=== PATIENT | male | born 1975 | race Caucasian/White ===

== ENCOUNTER 2017-02-28 04:45 | Inpatient (IN) | payer BC ==
--- NOTE | 2017-02-28 05:16 | ED ---
Psych HPI - General Chief Complaint: Psychiatric Symptoms Stated Complaint: Mental Health Time Seen by Provider: 02/28/17 04:57 Source: patient Mode of arrival: ambulatory - History of Present Illness Initial Comments: This patient is a 41-year-old man with history of previous psychiatric treatment to presents because he is having worsening of his depressed mood and suicidal ideation. The patient states that he stopped taking his psychiatric medications about a month ago. He states that the effects of medications he Wearing off now on for the past few days to weeks he has been feeling more depressed like he might harm himself. He has been having thoughts of hanging himself. MD Complaint: suicidal ideation, feels depressed -: days(s) Associated Psychiatric Symptoms: depression, suicidal ideation History of same: Yes Quality: getting worse Improves With: none Worsens With: none Context: not taking psychiatric medications Associated Symptoms: denies other symptoms Treatments Prior to Arrival: none If Self Harm: has plan - Related Data Previous Rx's Medication Instructions Recorded Escitalopram [Lexapro] 20 mg PO DAILY #30 tab 04/27/16 LORazepam [Ativan] 0.5 mg PO ACHS #30 tab 04/27/16 Methylphenidate HCl [Ritalin] 10 mg PO AC-BRKFST #30 tab 04/27/16 Paliperidone [Invega] 6 mg PO HS #30 tab.er.24 04/27/16 traZODone HCL [Desyrel] 100 mg PO HS #30 tab 04/27/16 Allergies Allergy/AdvReac Type Severity Reaction Status Date / Time No Known Allergies Allergy Verified 02/28/17 04:53 Review of Systems ROS Statement: Those systems with pertinent positive or pertinent negative responses have been documented in the HPI. ROS Other: All systems not noted in ROS Statement are negative. Constitutional: Denies: fever, chills Respiratory: Denies: cough, dyspnea Cardiovascular: Denies: chest pain, palpitations, edema Gastrointestinal: Denies: abdominal pain, vomiting, diarrhea Musculoskeletal: Denies: back pain Skin: Denies: rash Neurological: Denies: headache, weakness, numbness Psychiatric: Reports: depression, suicidal thoughts. Denies: auditory hallucinations, visual hallucinations, homicidal thoughts Past Medical History Past Medical History: No Reported History History of Any Multi-Drug Resistant Organisms: None Reported Past Surgical History: No Surgical Hx Reported Additional Past Surgical History / Comment(s): vasectomy in July Past Anesthesia/Blood Transfusion Reactions: No Reported Reaction Past Psychological History: ADD/ADHD, Anxiety, Depression Smoking Status: Never smoker Past Alcohol Use History: Occasional Past Drug Use History: Marijuana - Past Family History Father Family Medical History: Diabetes Mellitus, Hypertension Mother Family Medical History: No Reported History General Exam Limitations: no limitations General appearance: alert, in no apparent distress Head exam: Present: atraumatic, normocephalic Eye exam: Present: normal appearance. Absent: scleral icterus, conjunctival injection Respiratory exam: Present: normal lung sounds bilaterally. Absent: respiratory distress, wheezes, rales, rhonchi, stridor Cardiovascular Exam: Present: regular rate, normal rhythm, normal heart sounds. Absent: systolic murmur, diastolic murmur, rubs, gallop GI/Abdominal exam: Present: soft. Absent: distended, tenderness, guarding, rebound, mass Extremities exam: Present: normal inspection, normal capillary refill. Absent: pedal edema, calf tenderness Back exam: Present: normal inspection. Absent: CVA tenderness (R), CVA tenderness (L) Neurological exam: Present: alert Psychiatric exam: Present: normal affect, depressed, suicidal ideation. Absent : agitated, anxious, flat affect, manic, homicidal ideation Skin exam: Present: warm, dry, intact, normal color. Absent: rash Course Vital Signs 02/28/17 04:50 Temperature 98.3 F Pulse Rate 73 Respiratory 16 Rate Blood Pressure 131/84 O2 Sat by Pulse 98 Oximetry Disposition Clinical Impression: Depression, Suicidal ideation Disposition: ADMITTED IP TO THIS [facility] Condition: Fair Referrals: None,Stated [Primary Care Provider] - 1-2 days
[2017-02-28] MEDS ORDERED: MAG HYDROX/AL HYDROX/SIMETH 30 ML CUP PO PRN (07:24)
[2017-02-28] MEDS ORDERED: MAGNESIUM HYDROXIDE 2,400 MG/10 ML CUP PO PRN (07:24)
[2017-02-28] MEDS ORDERED: ACETAMINOPHEN TAB 325 MG TAB PO PRN (07:24)
[2017-02-28] MEDS ORDERED: LORazepam 1 MG TAB PO PRN (07:24)
[2017-02-28] MEDS ORDERED: ZIPRASIDONE 20 MG VIAL IM PRN (07:24)
[2017-02-28] MEDS ORDERED: LORazepam 2 MG/ML SYRINGE IM PRN (07:29)
[2017-02-28 07:38] LABS: Appearance,Urine Clear (Clear); Bilirubin,Urine Negative (Negative); Glucose,Urine (UA) Negative (Negative); Ketones,Urine Trace (Negative); Leukocyte Esterase,Urine Negative (Negative); Nitrite,Urine Negative (Negative); Protein,Urine Negative (Negative); Specific Gravity,Urine 1.013 (1.001-1.035); UA Billing (MACRO vs. MICRO) CHEM; Urobilinogen,Urine <2.0 mg/dL (<2.0)
[2017-02-28 09:30] LABS: Basophils % (A) 0 %; CH 32.3; CHCM 35.3; Eosinophils % (A) 1 %; HCT 44.9 % (39.0-53.0); HDW 2.51; HGB 15.5 gm/dL (13.0-17.5); Luc # (Auto) 0.15; Luc % (Auto) 2; Lymphocytes # (A) 0.9 k/uL (1.0-4.8); Lymphocytes % (A) 15 %; MCH 31.9 pg (25.0-35.0); MCHC 34.6 g/dL (31.0-37.0); MCV 91.9 fL (80.0-100.0); Mean Platelet Volume 6.4; Monocytes # (A) 0.4 k/uL (0-1.0); Monocytes % (A) 7 %; Neutrophils # (A) 4.6 k/uL (1.3-7.7); Neutrophils % (A) 75 %; RBC 4.88 m/uL (4.30-5.90); RDW 12.4 % (11.5-15.5); WBC 6.1 k/uL (3.8-10.6)
[2017-02-28 09:40] LABS: ALT 32 U/L (21-72); AST 23 U/L (17-59); Alkaline Phosphatase 67 U/L (38-126); Anion Gap 14 mmol/L; Blood Urea Nitrogen 13 mg/dL (9-20); Calcium 9.5 mg/dL (8.4-10.2); Carbon Dioxide 21 mmol/L (22-30); Chloride 104 mmol/L (98-107); Glucose 102 mg/dL (74-99); Non-African American GFR(MDRD) >60 (>60 ml/min/1.73 sqM); Potassium 4.2 mmol/L (3.5-5.1); Sodium 139 mmol/L (137-145); Total Bilirubin 0.8 mg/dL (0.2-1.3); Total Protein 7.9 g/dL (6.3-8.2)
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
[2017-02-28] MEDS: buPROPion 75 MG TAB PO SCH (10:44)
--- NOTE | 2017-02-28 16:25 | P.CONS ---
History of Present Illness - Reason for Consult Consult date: 02/28/17 Medical management - History of Present Illness This is a 41-year-old male without primary care physician. He has a past medical history of ADHD, anxiety and depression. Patient presented to [facility] emergency center with complaints of worsening depression and suicidal ideation. Patient stopped taking his psychiatric medications one month ago. TSH is 2.190. Urinalysis was nitrate and leukoesterase negative. Urine drug screen positive for benzodiazepines. Patient has been admitted to the mental health unit. Patient denies any medical concerns. Review of Systems All systems: negative Constitutional: Denies chills, Denies fever Eyes: denies blurred vision, denies pain Ears, nose, mouth and throat: Denies headache, Denies sore throat Cardiovascular: Denies chest pain, Denies shortness of breath Respiratory: Denies cough Gastrointestinal: Denies abdominal pain, Denies diarrhea, Denies nausea, Denies vomiting Musculoskeletal: Denies myalgias Integumentary: Denies pruritus, Denies rash Neurological: Denies numbness, Denies weakness Psychiatric: Reports depression, Reports hopelessness, Reports suicidal ideation , Denies anxiety Endocrine: Denies fatigue, Denies weight change Past Medical History Past Medical History: No Reported History History of Any Multi-Drug Resistant Organisms: None Reported Past Surgical History: No Surgical Hx Reported Additional Past Surgical History / Comment(s): vasectomy in July Past Anesthesia/Blood Transfusion Reactions: No Reported Reaction Past Psychological History: ADD/ADHD, Anxiety, Depression Smoking Status: Never smoker Past Alcohol Use History: Occasional Additional Past Alcohol Use History / Comment(s): She denies any medical marijuana, marijuana, street drug or alcohol use. Past Drug Use History: Marijuana - Past Family History Father Family Medical History: Diabetes Mellitus, Hypertension Additional Family Medical History / Comment(s): Father is alive at age 65 with history of diabetes. Mother Family Medical History: No Reported History Additional Family Medical History / Comment(s): Mother is alive at age 63 with no major medical problems. Brother(s) Additional Family Medical History / Comment(s): Patient has 2 brothers with no major medical problems. Patient does not have any sisters. Patient has one 2- year-old child with no major medical problems. Medications and Allergies Home Medications Medication Instructions Recorded Confirmed Type ARIPiprazole [Abilify] 20 mg PO DAILY 02/28/17 02/28/17 History Paliperidone [Invega] 3 mg PO HS 02/28/17 02/28/17 History buPROPion XL [Wellbutrin Xl] 150 mg PO DAILY 02/28/17 02/28/17 History Allergies Allergy/AdvReac Type Severity Reaction Status Date / Time No Known Allergies Allergy Verified 02/28/17 07:59 Physical Exam Vitals: Vital Signs Temp Pulse Pulse Resp BP BP Pulse Ox 02/28/17 07:58 98.7 F 73 18 110/65 98 02/28/17 07:40 98.5 F 67 18 112/72 97 02/28/17 06:48 98.9 F 68 18 115/72 98 02/28/17 04:50 98.3 F 73 16 131/84 98 Intake and Output 02/27/17 02/28/17 02/28/17 22:59 06:59 14:59 Other: Weight 83.915 kg Gen: This is a 41-year-old male. He is cooperative and appears to be in no acute distress. HEENT: Head is atraumatic, normocephalic. Pupils equal, round. Sclerae is anicteric. NECK: Supple. No JVD. No lymphadenopathy. No thyromegaly. LUNGS: Clear to auscultation. No wheezes or rhonchi. No intercostal retractions. HEART: Regular rate and rhythm. No murmur. ABDOMEN: Soft. Bowel sounds are present. No masses. No tenderness. EXTREMITIES: No pedal edema. No calf tenderness. NEUROLOGICAL: Patient is awake, alert and oriented x3. Cranial nerves 2 through 12 are grossly intact. Results CBC & Chem 7: 02/28/17 08:32 02/28/17 08:32 Labs: Abnormal Lab Results - Last 24 Hours (Table) 02/28/17 02/28/17 02/28/17 Range/Units 05:05 05:05 08:32 Lymphocytes # 0.9 L (1.0-4.8) k/uL Carbon Dioxide (22-30) mmol/L Glucose (74-99) mg/dL Urine Ketones Trace H (Negative) U Benzodiazepines Scrn Detected H (NotDetected) 02/28/17 Range/Units 08:32 Lymphocytes # (1.0-4.8) k/uL Carbon Dioxide 21 L (22-30) mmol/L Glucose 102 H (74-99) mg/dL Urine Ketones (Negative) U Benzodiazepines Scrn (NotDetected) Assessment and Plan Plan: 1. Depression recurrent with suicidal ideation with noncompliance with medication. Patient has been admitted to the mental health unit. Continue current plan of care. 2. Anxiety. Continue as in #1. Impression and plan of care have been directed as dictated by the signing physician. Eleni Dumont nurse practitioner acting as scribe for signing physician.
[2017-02-28 20:32] VITALS: BMI 28.1
[2017-02-28] MEDS ORDERED: LITHIUM CARBONATE 150 MG CAP PO SCH (21:00)
[2017-03-01] MEDS: buPROPion 75 MG TAB PO SCH (08:32)
--- NOTE | 2017-03-01 09:53 | P.PN ---
Progress Note - Text INTERVERAL HISTORY: Patient in his room came out when paged. Patient says that he has adjusted to the unit, still a bit anxious. Reports that he slept okay. Asked how long it would take for the medicines to take effect. Patient reports that he still thinks about suicide, asked what his thoughts are that lead to thoughts of taking his life, states when he starts to think about his ex-, his son, and his life that he had before the divorce. Patient also reports anxiety when those thoughts occur. MENTAL STATUS EXAM: Patient alert and oriented 3, good eye contact, fair groomed in street clothing. Speech low volume, decreased rate and production. Coherent, logical and goal directed thought process. No ALEJANDRO, no FOI. No TB/TW/ TI Denied auditory and visual hallucinations. Denied paranoid ideation, delusions or IOR. Memory grossly intact Cognition average Recalled 3 out of 3 at 0 minutes; 1 out of 3 at 5 minutes; WORLD, DLOW; Serial 7 's 93, 96, 69, 62, 55,48,41,34,27,20, 13,6. Mood anxious, dysphoric, affect constricted, congruent with mood. +suicidal ideation, denies homicidal ideation. Insight limited; Judgement grossly intact for treatment purposes IMPRESSIONS: 41-year-old male, presenting for his fourth or fifth psychiatric inpatient admission in 1 year. It is reported that he also had a partial day program last year, with questionable compliance of outpatient treatment. 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 He reports obsessive thoughts that do not rise to an obsessive disorder, or a posttraumatic disorder. He stopped his medications approximately a month ago and his depression increased significantly, as did his suicidal ideation. Patient is dysphoric, anxious, feeling hopeless, worthless, not enjoying previous enjoyable activities and suicidal. No evidence of mike, hypomania, psychosis or obsessive-compulsive disorder. He does not meet criteria for posttraumatic stress disorder. Patient's memory and concentration were impaired, most likely related to anxiety and depression. ADMISSION DIAGNOSES: Suicide ideation Major depressive disorder, recurrent, moderate, without psychosis Noncompliance PLAN: Continue inpatient psychiatric admission for safety purposes, treatment. Suicide precautions every 15 minutes. Used CBT principles to help alleviate the obsessive thoughts around his ex-. Wellbutrin 150mg today and 300mg tomorrow. Increase lithium 300 mg tonight. Patient warned about side effects and to stop lithium if he has vomiting or diarrhea. Monitor patient's response to medications, with goal to resolve suicide ideation , improve mood and concentration. Start focusing on outpatient treatment, need for compliance. CBT Milieu therapy. renal social worker to arrange family meeting.
[2017-03-01] MEDS ORDERED: buPROPion 75 MG TAB PO STA (11:25)
[2017-03-01] MEDS: LITHIUM CARBONATE 150 MG CAP PO SCH (20:17)
[2017-03-02] MEDS: hydrOXYzine PAMOATE 25 MG CAP PO PRN ×2 (09:02→20:54)
[2017-03-02] MEDS: buPROPion XL 300 MG TAB.ER.24H PO SCH (09:02)
[2017-03-02] MEDS: LITHIUM CARBONATE 150 MG CAP PO SCH (20:54)
--- NOTE | 2017-03-02 22:29 | PN ---
DATE OF SERVICE: 03/02/2017 CHIEF COMPLAINT: The patient was admitted for increasing problems with depression over the last month. He had suicide thoughts, obsessions and anxiety. He had thoughts of hanging himself with a belt. INTERVAL HISTORY: Patient has been doing fair. He has been attending groups. Mostly he is quiet. He seems to show low energy. He is not too active in participation, though he does attend most all of the groups. He slept well last night. He had anxiety this morning. He said that he took Vistaril, which helped. He says in the last few days, he has tended to have anxiety more in the morning time and as the day goes on, things seem to be a little better for him. He feels that his mood is improved. He asked me if the lithium he was started on could kick in quickly, because he thinks he may be feeling some improvement from that. We discussed his treatment for depression. It is noted that he shared with Dr. Newell that the combination of Lexapro and Wellbutrin did not seem to work for him, though today he says that he thinks the medicines were helping and that when he stopped them about a month ago, things went downhill fairly rapidly. He has now been back on the Wellbutrin, he says, for a little over a week. He is appropriate. He comes out on the unit. He will interact with others. He has not had change in his general health. He tolerates his psychotropic medications. MENTAL STATUS: Patient gave good eye contact. He was somewhat restless and bounced his legs throughout the interview. He answered questions appropriately. His thoughts were clear. He did not say a lot. He was not interactive, though he gave direct responses to questions. His affect was blunted. He had a pleasant, quiet manner. His mood was somewhat down, though not clearly depressed. He did not appear to be significantly distressed. ASSESSMENT: I will continue the current diagnosis and treatment plan. Will continue to engage the patient in individual and group therapeutic activities. I will continue psychotropic medications the same, including Wellbutrin XL 300 mg a day and lithium carbonate 300 mg a day. He also has Vistaril p.r.n. I discussed that his morning time anxiety may be part of diurnal mood issues relating to depression. I discussed that he may be getting some benefits from lithium augmentation even within the first 24 to 48 hours, though also he may be getting benefits just by restarting his Wellbutrin. He is making progress. We will focus on stabilization and discharge planning. Will coordinate with outpatient resources for followup care.
[2017-03-03] MEDS: hydrOXYzine PAMOATE 25 MG CAP PO PRN ×2 (08:22→20:31)
[2017-03-03] MEDS: buPROPion XL 300 MG TAB.ER.24H PO SCH (08:22)
--- NOTE | 2017-03-03 16:50 | PN ---
DATE OF SERVICE: 03/03/2017 CHIEF COMPLAINT: The patient was admitted for increasing problems with depression over the last month. He had suicide thoughts obsessions and anxiety. He had thoughts of hanging himself with a belt. INTERVAL HISTORY: Patient has been doing fairly well. He seems to be making progress. He had a quiet evening last night. He slept fairly well. He has had complaint of anxiety in the morning time. He said that yesterday morning he was quite anxious. He did receive some Vistaril this morning. He feels that overall he has done better with less anxiety. He notes that his mood improves as the day goes on. He has a better outlook. He feels a little more hopeful. He attends groups. He usually is quiet in the groups though appropriate. He is appropriate in the milieu. He has not had change in his general health. He tolerates his psychotropic medications. MENTAL STATUS: Patient gave good eye contact. Psychomotor activity was a little restless. Speech was clear. He answered questions with brief responses. His affect was mildly anxious. He smiled a little. His mood was quiet though not down or depressed. He did not appear to be distressed. ASSESSMENT: I will continue the current diagnosis and treatment plan. I will continue psychotropic medications the same. Patient appears to be making progress. We will continue to focus on stabilization and discharge planning. The patient may be progressing to the point of aiming towards discharge early to mid-week.
[2017-03-03] MEDS: LITHIUM CARBONATE 150 MG CAP PO SCH (20:31)
[2017-03-04] MEDS: buPROPion XL 300 MG TAB.ER.24H PO SCH (09:31)
[2017-03-04] MEDS: hydrOXYzine PAMOATE 25 MG CAP PO PRN ×2 (09:31→20:47)
--- NOTE | 2017-03-04 11:52 | P.PN ---
Progress Note - Text INTERVERAL HISTORY: Patient admitted for depression and suicidal ideation. Had 4-5 admissions over the past year. Patient is noted to be anxious sitting with his legs moving constantly. Patient reports that he just can't seem to stop thinking about his ex- "I keep obsessing, maybe I should've obsessed more and it would not happen" Nursing staff reports that this is all that he speaks about, how he could've avoided the divorce, what he should've done. Patient still having suicidal ideation, but now he states "I don't think I could ever do that, I don't know what would come next,". He reports that he seems to feel worse in the morning and then it gets a little bit better in the afternoon. We discussed possible additions to his current medications, that he reminded me that he had been taking 3 or 4 medicines, and felt like he was too sedated. We agreed that we would not add a fourth medication, but that we would increase the Wellbutrin to the maximum dose. Discussed that he might feel a bit more anxious at the beginning of the increase. MENTAL STATUS EXAM: Patient alert and oriented 3, good eye contact, fair groomed in street clothing. Speech low volume, decreased rate and production. Coherent, logical and goal directed thought process. No ALEJANDRO, no FOI. No TB/TW/ TI Denied auditory and visual hallucinations. Denied paranoid ideation, delusions or IOR. Memory grossly intact Cognition average Recalled 3 out of 3 at 0 minutes; 1 out of 3 at 5 minutes; WORLD, DLOW; Serial 7 's 93, 96, 69, 62, 55,48,41,34,27,20, 13,6. Mood anxious, dysphoric, tearful, affect constricted, congruent with mood. +suicidal ideation, denies homicidal ideation. Insight limited; Judgment grossly intact for treatment purposes ADMISSION DIAGNOSES: Suicide ideation Major depressive disorder, recurrent, moderate, without psychosis R/O melancholia PLAN: Continue inpatient psychiatric admission for safety purposes, patient continues to have suicidal ideation, Suicide precautions every 15 minutes. Used CBT principles to help alleviate the obsessive thoughts around his ex-. Incease Wellbutrin 450mg today. Continue lithium 300 mg QHS. Patient warned about side effects and to stop lithium if he has vomiting or diarrhea. Monitor patient's response to medications, with goal to resolve suicide ideation , improve mood and concentration. Start focusing on outpatient treatment, need for compliance. CBT Milieu therapy.
[2017-03-04] MEDS ORDERED: buPROPion XL 150 MG TAB.ER.24H PO SCH (12:00)
[2017-03-04] MEDS ORDERED: buPROPion XL 150 MG TAB.ER.24H PO ONE (12:00)
[2017-03-04] MEDS: LITHIUM CARBONATE 150 MG CAP PO SCH (20:47)
[2017-03-05] MEDS: buPROPion XL 150 MG TAB.ER.24H PO SCH (08:41)
[2017-03-05] MEDS: hydrOXYzine PAMOATE 25 MG CAP PO PRN ×2 (08:42→20:38)
--- NOTE | 2017-03-05 09:56 | P.PN ---
Progress Note - Text INTERVERAL HISTORY: Patient admitted for depression and suicidal ideation. Had 4-5 admissions over the past year. Patient is reporting no side effects with increase of welbutrin. Has not had any side effects to lithium. He also notes he is not sedated/lethargic like he was with his outpatient medications. Noted he did not sleep well last night, asked him to let me know if that happens again tonight. He is still anxious, dysphoric, tearing up when asked about not thinking about his x-. Nursing staff reports that this is all that he speaks about, how he could've avoided the divorce, what he should've done. Patient reports mornings are worse than afternoons and today he does not have suicidal ideation. MENTAL STATUS EXAM: Patient alert and oriented 3, good eye contact, fair groomed in street clothing. Speech low volume, decreased rate and production. Coherent, logical and goal directed thought process. No ALEJANDRO, no FOI. No TB/TW/ TI Denied auditory and visual hallucinations. Denied paranoid ideation, delusions or IOR. Memory grossly intact Cognition average Mood anxious, dysphoric, tearful, affect constricted, congruent with mood. No suicidal ideation noted this morning, denies homicidal ideation. Insight limited; Judgment grossly intact for treatment purposes ADMISSION DIAGNOSES: Suicide ideation Major depressive disorder, recurrent, moderate, without psychosis R/O melancholia PLAN: Continue inpatient psychiatric admission for safety purposes, patient continues to have suicidal ideation, Suicide precautions every 15 minutes. Used CBT principles to help alleviate the obsessive thoughts around his ex-. Continue Wellbutrin 450mg today. Continue lithium 300 mg QHS. This is used for adjuvant to antidepressant, purported prevention of suicide and recent studies show that lithium is helpful for inaptients with MDD. This is NOT for Bipolar diagnosis. Patient warned about side effects and to stop lithium if he has vomiting or diarrhea. Monitor patient's response to medications, with goal to resolve suicide ideation , improve mood and concentration. Start focusing on outpatient treatment, need for compliance. CBT Milieu therapy.
[2017-03-05] MEDS: LITHIUM CARBONATE 150 MG CAP PO SCH (20:37)
[2017-03-06] MEDS: buPROPion XL 150 MG TAB.ER.24H PO SCH (08:13)
[2017-03-06] MEDS: hydrOXYzine PAMOATE 25 MG CAP PO PRN ×2 (08:15→20:36)
--- NOTE | 2017-03-06 12:40 | P.PN ---
Progress Note - Text INTERVERAL HISTORY: Patient discussed in team treatment team meetings, review of record, met with patient. Patient had a family conference with social services counselor Vanessa, both patient and mother were emotional about how he has been functioning. Staff noted that patient continues to be anxious, tearful, obsessing over his ex - and his behavior. Patient came to the office. Reports that he did not sleep again well last night, his sleep has been disturbed now since we increased the Wellbutrin to 450 mg. Vanessa had mentioned that patient had stated that he had done better when he was on Abilify, Lexapro, BuSpar, intake. Reviewed all of the discharge summaries that he has since being here on the unit. And the combination of those meds doesn't match however he reports that he told his primary care doctor and they just kept adding more medication and nothing being subtracted. Reviewed his home medication and he was taking Abilify 20 mg daily in vague 9 mg daily Wellbutrin 150 mg BuSpar and Ritalin. Discussed with patient my concerned about the polypharmacy and that it is not surprising that he felt bad on dad amount of medication. He is not endorsing suicide ideation but he is still severely depressed and tearful, anxious, insomnia, and the obsessive thoughts of his ex-. This does not appear to be a psychotic disorder, but clearly patient has more than just a major depressive disorder even though he had no previous psychiatric problems prior to the breakup of his marriage. Patient reports mornings are worse than afternoons and today he does not have suicidal ideation. Patient is hopeless, feelings of worthlessness, obsessive/ irrational thoughts of ex-, almost bordering on edge of psychosis. MENTAL STATUS EXAM: Patient alert and oriented 3, good eye contact, fair groomed in street clothing. Speech low volume, decreased rate and production. Coherent, logical and goal directed thought process. No ALEJANDRO, no FOI. No TB/TW/ TI Denied auditory and visual hallucinations. Denied paranoid ideation, delusions or IOR. Memory grossly intact Cognition average Mood anxious, dysphoric, tearful, affect constricted, congruent with mood. No suicidal ideation noted this morning, denies homicidal ideation. Insight limited; Judgment grossly intact for treatment purposes ADMISSION DIAGNOSES: Major depressive disorder, recurrent, moderate, without psychosis R/O melancholia Suicide ideation PLAN: Continue inpatient psychiatric admission for safety purposes, clarification of diagnosis and treatment. Suicide precautions every 15 minutes. Used CBT principles to help alleviate the obsessive thoughts around his ex-. Discussed Wellbutrin to 300 mg daily Increase lithium to 600 mg daily at bedtime. This is used for adjuvant to antidepressant, purported prevention of suicide and recent studies show that lithium is helpful for inaptients with MDD. Add Abilify 5 mg daily, a now dose. Trazodone 100 mg at bedtime when necessary insomnia. Patient warned about side effects and to stop lithium if he has vomiting or diarrhea. Monitor patient's response to medications, with goal to resolve suicide ideation , improve mood and concentration. Milieu therapy.
[2017-03-06] MEDS: ARIPiprazole 5 MG TAB PO SCH (12:58)
[2017-03-06] MEDS: LITHIUM CARBONATE 300 MG CAP PO SCH (20:34)
[2017-03-06] MEDS: traZODone HCL 100 MG TAB PO PRN (22:17)
[2017-03-07] MEDS: buPROPion XL 150 MG TAB.ER.24H PO SCH (08:52)
[2017-03-07] MEDS: ARIPiprazole 5 MG TAB PO SCH (08:52)
--- NOTE | 2017-03-07 11:43 | P.PN ---
Progress Note - Text INTERVERAL HISTORY: Patient discussed in team treatment team meetings, review of record, met with patient. Staff noted that patient continues to be anxious, tearful, obsessing over his ex - and his behavior. Patient came to the office. Patient reports that he feels better today than he did yesterday but still depressed, anxious, obsessing about his . Today he asked me if its documented in the record that when he was here the last time that he had thoughts of killing his . Asked him if he would give me the information that I was not sure I had read that. He states at one point during the divorce or separation that he cornered his in the laundry room and had plans of killing her. States that he was not going to kill himself, but planned on going to snf. States he thinks that might be why his doctors put him on so many antipsychotics. He states he does not have those thoughts now about killing her. However he still is obsessed with what she did, cheated on him and he views that she is still cheating on him even though they are . He denies any thoughts of wanting to harm her. He reports that he did sleep better last night. Patient remains dysphoric, tearful when he talks about his ex-, and the obsessive thoughts that he has. He remains anxious, cannot sit still. He denies suicidal ideation today. MENTAL STATUS EXAM: Essentially unchanged. Patient alert and oriented 3, good eye contact, fair groomed in street clothing. Speech low volume, decreased rate and production. Coherent, logical and goal directed thought process. No ALEJANDRO, no FOI. No TB/TW/ TI Denied auditory and visual hallucinations. Denied paranoid ideation, delusions or IOR. Memory grossly intact Cognition average Mood anxious, dysphoric, tearful, affect constricted, congruent with mood. No suicidal ideation noted this morning, denies homicidal ideation. Insight limited; Judgment grossly intact for treatment purposes ADMISSION DIAGNOSES: Major depressive disorder, recurrent, moderate, with psychosis; R/O melancholia Suicide ideation PLAN: Continue inpatient psychiatric admission for safety purposes, clarification of diagnosis and treatment. Change of diagnosis from major depressive disorder recurrent moderate without psychosis to major depressive disorder recurrent severe with psychosis. Suicide precautions every 15 minutes. Wellbutrin to 150 mg daily [place] to 600 mg daily at bedtime. This is used for adjuvant to antidepressant , purported prevention of suicide and recent studies show that lithium is helpful for inaptients with MDD. Add Abilify 5 mg daily, a now dose. Will consider increasing with the new information. Trazodone 100 mg at bedtime when necessary insomnia. Patient warned about side effects and to stop lithium if he has vomiting or diarrhea. Monitor patient's response to medications, with goal to resolve suicide ideation , improve mood and concentration. LOS 3-5 days Milieu therapy.
[2017-03-07] MEDS: LITHIUM CARBONATE 300 MG CAP PO SCH (20:15)
[2017-03-07] MEDS: traZODone HCL 100 MG TAB PO PRN (22:20)
[2017-03-08] MEDS: buPROPion XL 150 MG TAB.ER.24H PO SCH (08:21)
[2017-03-08] MEDS: ARIPiprazole 5 MG TAB PO SCH (08:21)
[2017-03-08] MEDS ORDERED: ARIPiprazole 5 MG TAB PO ONE (11:00)
--- NOTE | 2017-03-08 11:53 | P.PN ---
Progress Note - Text INTERVERAL HISTORY: Patient discussed in team treatment team meetings, review of record, met with patient. Patient came to the office. Patient reports that he feels about the same as yesterday. Still obsessing about his . Asked if he was having thoughts of suicide as he was not having suicide thoughts but winking about what would happen if he did commit suicide. Prior to admission he had put a belt around his neck and today he states that's what he thinks he would do if he were to commit suicide, but feels that he could never go through with it that he doesn't have the guts. He reports that he slept well again last night. Patient remains dysphoric, but today patient did not have crying or tearing up. He remains anxious, cannot sit still. He denies suicidal ideation today. MENTAL STATUS EXAM: Essentially unchanged. Patient alert and oriented 3, good eye contact, fair groomed in street clothing. Speech low volume, decreased rate and production. Coherent, logical and goal directed thought process. No ALEJANDRO, no FOI. No TB/TW/ TI Denied auditory and visual hallucinations. Denied paranoid ideation, delusions or IOR. Memory grossly intact Cognition average Mood dysphoric, tearful, affect constricted, congruent with mood. No suicidal ideation noted this morning, but continues to thoughts about what would happen if he were to commit suicide, denies homicidal ideation. Insight limited; Judgment grossly intact for treatment purposes ADMISSION DIAGNOSES: Major depressive disorder, recurrent, moderate, with psychosis; R/O melancholia Suicide ideation PLAN: Continue inpatient psychiatric admission for safety purposes, clarification of diagnosis and treatment. Change of diagnosis from major depressive disorder recurrent moderate without psychosis to major depressive disorder recurrent severe with psychosis. Suicide precautions every 15 minutes. Wellbutrin to 150 mg daily [place] to 600 mg daily at bedtime. This is used for adjuvant to antidepressant , purported prevention of suicide and recent studies show that lithium is helpful for inaptients with MDD. Increase Abilify 10 mg daily, essentially for the obsessive thoughts of x-. Trazodone 100 mg at bedtime when necessary insomnia. Patient warned about side effects and to stop lithium if he has vomiting or diarrhea. Monitor patient's response to medications, with goal to resolve suicide ideation , improve mood and concentration. LOS 3-5 days Milieu therapy.
[2017-03-08] MEDS: LITHIUM CARBONATE 300 MG CAP PO SCH (20:36)
[2017-03-08] MEDS: traZODone HCL 100 MG TAB PO PRN (21:47)
[2017-03-09] MEDS: ARIPiprazole 10 MG TAB PO SCH (08:22)
[2017-03-09] MEDS: buPROPion XL 150 MG TAB.ER.24H PO SCH (08:22)
--- NOTE | 2017-03-09 12:23 | P.PN ---
Progress Note - Text Interval history: The patient is found in the self lounge she follows me to an interview room. He presented with suicidal ideation in the context of struggling still with obsessive thoughts related to his divorce. He reports that he was to a woman much younger than himself for approximate 2 years. She was unfaithful and they were . He finds himself ruminating over things he could've done differently. We discussed the situation in some detail trying to look at it more objectively. He reports he is attending groups he was able to sleep last night appetite is stable. We reviewed his psychotropic medications he has no questions or concerns regarding them. Mental status exam: The patient is an alert male appearing his stated age he is dressed in his own clothing he seated calmly in the chair. Eye contact is appropriate he's pleasant cooperative. He reports that he did have suicidal thoughts but he states he "doesn't have the guts to do it". No homicidal ideation. He does continue to endorse ruminative thinking obsessing about the previous marriage. Insight and judgment limited. There is no verbal or physical aggressiveness. No evidence of psychosis hypomania or mike. Plan: The patient will continue on his current medications we will monitor him for safety he is encouraged to participate in the milieu. He is anticipating a visit from his family this evening. Vital signs reviewed.
[2017-03-09] MEDS: LITHIUM CARBONATE 300 MG CAP PO SCH (20:06)
[2017-03-09] MEDS: traZODone HCL 100 MG TAB PO PRN (21:57)
[2017-03-10 08:09] VITALS: RESP 14
[2017-03-10] MEDS: ARIPiprazole 10 MG TAB PO SCH (08:36)
[2017-03-10] MEDS: buPROPion XL 150 MG TAB.ER.24H PO SCH (08:36)
--- NOTE | 2017-03-10 09:12 | P.PN ---
Progress Note - Text Interval history: The patient is found in the hallway he follows me to an interview room. He reports that things appear stable. He feels that he is looking forward to being discharged as he feels he has addressed everything that he can up here. He continues to attend groups. He reports he was able to sleep last night appetite is stable. We reviewed his psychotropic medications he has no questions at this time. He did not have any visitors last evening but expects his parents woke him up tonight. Mental status exam: The patient is alert he seated calmly in the chair eye contact is appropriate speech is fluent. He participates in the dialogue but usually responds to questions asked with not initiating much spontaneous speech. He is reporting no acute suicidal ideation intent or plan he is reporting no homicidal ideation intent or plan. He endorses no auditory or visual hallucinations he endorses no specific delusions. He does not appear hypomanic or manic. Thought process is linear and goal directed. He demonstrates no verbal or physical aggressiveness. He is pleasant and cooperative and easily directed. He remains oriented to person place and date. No abnormal involuntary movements observed. Plan: The patient will continue on his current psychotropic medications. We will continue to monitor for safety and encourage his continued participation in the milieu. Vital signs reviewed.
[2017-03-10] MEDS: hydrOXYzine PAMOATE 25 MG CAP PO PRN (20:14)
[2017-03-10] MEDS: LITHIUM CARBONATE 300 MG CAP PO SCH (20:15)
[2017-03-10] MEDS: traZODone HCL 100 MG TAB PO PRN (22:36)
[2017-03-11 06:24] VITALS: BP 90/51; PULSE 52; TEMP 97.6
[2017-03-11] MEDS: ARIPiprazole 10 MG TAB PO SCH (08:38)
[2017-03-11] MEDS: buPROPion XL 150 MG TAB.ER.24H PO SCH (08:38)
--- NOTE | 2017-03-11 11:30 | P.DS ---
Providers Date of admission: 02/28/17 07:21 Expected date of discharge: 03/11/17 Attending physician: Katiuska Newell MD Consults: 02/28/17 07:24 Consult Physician Routine Consulting Provider: Kate Dickerson Consult Reason/Comments: H&P for medical review Do you want consulting provider notified?: Yes, Notify in am Primary care physician: Stated None Hospital Course: ADMISSION HISTORY: The patient patient reports that he is been feeling depressed for the past month, has had suicidal ideation for the same period of time. Patient had been prescribed Lexapro about a year ago and had lethargy/ fatigue with it and told his primary care doctor who started him on Wellbutrin about a month ago, patient did not notice any difference and he stopped both Wellbutrin and Lexapro approximately a month ago. He then noted that he started to spiral downwards with increasing depression, obsessive thoughts about his ex- and his marriage to her, what could he have done differently, why did it and, and then began to have thoughts of suicide with a plan to hang himself. States that this past week and last night he tried putting a belt around his neck. Last night after his ex- and her new significant other came over and picked up their son he became acutely anxious, unable to sleep with increased thoughts of suicide and came into the emergency room. Patient reports that up until last night his sleep was okay, and that up to the time that he stopped all of his medications he was managing, still depressed but managing to go to work, have his son every weekend and take care of his daily routine. Patient denies periods of high energy, denies decreased need for sleep, denies risk-taking behavior. Patient denies hearing voices, denies believing that people can control him insert thoughts read his mind. Patient denies any paranoia. Patient reports the suicide ideation his lower right now but it has been chronic for the past 3-4 weeks. Patient reports "obsessive thoughts" meaning that he cannot stop thinking about his marriage, his or ex- and his child and not being with them on a regular basis. He denies that he is having nightmares with this theme, or any dreams about it. He denies having daily sense of remembering at or being triggered to remember it, no physiological responses when he does have the obsessive thoughts. PAST PSYCHIATRIC HISTORY: [Patient reports he believes he has had 4 admissions counting this one. All of psychiatric care began approximately a year ago after his left him. He reports that he has been treated Lexapro, Wellbutrin, trazodone, Abilify, BuSpar, inVega. HOSPITAL COURSE: Patient was noted to be severely depressed, dysphoric with suicidal ideation. He had stated that he stopped all of his medicines several weeks prior to the admission due to the fact that he was overly sedated. We try to go to the highest dose of Wellbutrin but patient began to have problems with sleep. We tried several other combinations of medication and although patient reported some improvement he continued to be suicidal and dysphoric. We had a family meeting with his mother who was very distressed by his continued dysphoria but at that meeting patient reported that the best he had felt was with the medicine that he had stopped. So we restarted Abilify starting at 5 mg with an increase to 10 mg. We reduced the bupropion or Wellbutrin to 150 mg daily, him was titrated up from 150 mg daily at bedtime to 600 mg, patient was able to tolerate that. We added trazodone 100 mg daily at bedtime for insomnia. Patient began to report decrease depression and decreased suicidal ideation. He still reported obsessions regarding his marriage and what he did wrong. He denied adamantly and convincingly that he was not homicidal towards his ex-. Over the weekend he continued to report decrease dysphoria and today he said he feels like he is probably at the best that he is going to be, no suicidal ideations no homicidal ideations. He continues to have obsessive thoughts regarding his marriage and what he did wrong these do not appear to be psychotic in nature nor does it appear to really be OCD. We agreed that he was stable for discharge. ADMISSION DIAGNOSES: Major depressive disorder, recurrent, moderate, with psychosis; R/O melancholia Suicide ideation DISCHARGE DIAGNOSES: Major depressive disorder recurrent, severe, in partial resolution Suicide ideation, resolved Patient has already been set up with both counseling and psychiatrist, social work/cracking unit operator will make those appointments. Pertinent Studies: none Procedures: none Patient Condition at Discharge: Stable Plan - Discharge Summary New Discharge Prescriptions: New ARIPiprazole [Abilify] 10 mg PO DAILY #14 tab hydrOXYzine PAMOATE [Vistaril] 25 mg PO Q6HR PRN #14 cap PRN Reason: Agitation Or Acute Anxiety [place] 600 mg PO HS #28 cap Continue buPROPion XL [Wellbutrin XL] 150 mg PO DAILY #14 traZODone HCL [Desyrel] 100 mg PO HS #30 tab Discontinued Escitalopram [Lexapro] 20 mg PO DAILY #30 tab Methylphenidate HCl [Ritalin] 10 mg PO AC-BRKFST #30 tab ARIPiprazole [Abilify] 20 mg PO DAILY Paliperidone [Invega] 3 mg PO HS Discharge Medication List ARIPiprazole [Abilify] 10 mg PO DAILY #14 tab 03/11/17 [Rx] [place] 600 mg PO HS #28 cap 03/11/17 [Rx] buPROPion XL [Wellbutrin XL] 150 mg PO DAILY #14 03/11/17 [Rx] hydrOXYzine PAMOATE [Vistaril] 25 mg PO Q6HR PRN #14 cap 03/11/17 [Rx] traZODone HCL [Desyrel] 100 mg PO HS #30 tab 03/11/17 [Rx] Follow up Appointment(s)/Referral(s): [facility] [Outside] - 03/14/17 10:00 am None,Stated [Primary Care Provider] - 1-2 days Patient Instructions/Handouts: Depression (DC), Suicide Prevention for Adults ( DC) Activity/Diet/Wound Care/Special Instructions: Remove all weapons and firearms from the home; No street drugs or alcohol; Regular Diet; Activity as tolerated; Follow-up with your PCP in 1-2 days; Keep all scheduled follow-up appointments for continuity of care; Any problems call your PCP or the Crisis Line at or [phone] in case of emergency. Discharge Disposition: HOME SELF-CARE
== END 2017-03-11 17:25 | disposition home or self-care (01) | DRG 885 ==
LOC: EC 04:45 → 3MHU 07:21
PROVIDERS: ADMIT Psychiatry & Neurology Addiction Medicine; ATTEND Psychiatry & Neurology Addiction Medicine
DX: F33.2 Major depressive disorder, recurrent severe without psychotic features (principal); R45.851 Suicidal ideations; F41.9 Anxiety disorder, unspecified; G47.00 Insomnia, unspecified; F90.9 Attention-deficit hyperactivity disorder, unspecified type; Z79.899 Other long term (current) drug therapy
CPT/HCPCS: 80053; 80178; 80306; 81003; 82075; 84443; 85025; 93005; 99285